=== PATIENT | male | born 1950 | race Caucasian/White ===

== ENCOUNTER 2022-12-23 11:55 | Emergency (ER) | payer MEDICARE, SELFPAY ==
[2022-12-23 11:56] VITALS: BP 141/81; PULSE 82; RESP 16; TEMP 36.5; O2SAT 100; BMI 25.5
--- NOTE | 2022-12-23 12:10 | EX.ED.DYSGE1 ---
HPI <MIKE Hill - Last Filed: 12/23/22 13:52> History of Present Illness Chief Complaint: Cellulitis Narrative Narrative: 72-year-old male states his cat scratched his right index finger about a week ago and since then he has had progressive redness and swelling. For the first few days just the finger was swollen and he took an antibiotic he had on hand at home. When the entire hand became swollen and red he went to urgent care was prescribed Augmentin and has taken x5 doses with no improvement. Denies fever or chills. Denies diabetes or immunocompromise. He is right-hand dominant. [facility] <MIKE Hill - Last Filed: 12/23/22 13:52> [facility] Medical History (Updated 12/23/22 @ 13:52 by MIKE Hill) Hypertension Allergy/AdvReac Type Severity Reaction Status Date / Time No Known Allergies Allergy Verified 12/23/22 12:05 Social History Smoking Status: Never smoker ROS <MIKE Hill - Last Filed: 12/23/22 13:52> ROS ED ROS Narrative Constitutional: Negative for fever, chills, malaise. GI: Negative for nausea, vomiting. Neuro: Negative for motor/sensory dysfunction. Skin: Positive for redness. Musc: Positive for right hand pain, swelling. EXAM <MIKE Hill - Last Filed: 12/23/22 13:52> Physical Exam Narrative Exam Narrative: CONST: Patient sitting in no acute distress. EYES: Normal inspection. NECK: Normal inspection. RESP: No respiratory distress, CTAB. CVS: Regular rate and rhythm, no murmur, no gallop. SKIN: Color normal, no rash, warm, dry, intact. EXTREMITIES: Edematous and erythematous right hand with fusiform swelling of the right index finger and diffuse tenderness. Pinpoint scab over the tip of the index finger where the cat scratch occurred, no fluctuance or drainage. 2+ radial pulse and brisk cap refill. NEURO: Oriented x4. PSYCH: Normal affect. Const Vital Signs: 12/23/22 11:56 12/23/22 12:15 12/23/22 13:23 Temperature 97.7 F L 97.7 F L 98.2 F Temperature Source Temporal Temporal Oral Pulse Rate 82 81 77 Respiratory Rate 16 18 18 Blood Pressure 141/81 H 130/77 H 147/99 H Blood Pressure Mean 101 94 115 Pulse Ox 100 97 96 Oxygen Delivery Method Room Air Room Air Room Air 12/23/22 14:02 12/23/22 14:03 Temperature Temperature Source Pulse Rate 73 74 Respiratory Rate 18 18 Blood Pressure 147/99 H Blood Pressure Mean 115 Pulse Ox 96 96 Oxygen Delivery Method Room Air <Dr. William Ray DO - Last Filed: 12/23/22 14:36> Physical Exam Const Vital Signs: 12/23/22 11:56 12/23/22 12:15 12/23/22 13:23 Temperature 97.7 F L 97.7 F L 98.2 F Temperature Source Temporal Temporal Oral Pulse Rate 82 81 77 Respiratory Rate 16 18 18 Blood Pressure 141/81 H 130/77 H 147/99 H Blood Pressure Mean 101 94 115 Pulse Ox 100 97 96 Oxygen Delivery Method Room Air Room Air Room Air 12/23/22 14:02 12/23/22 14:03 Temperature Temperature Source Pulse Rate 73 74 Respiratory Rate 18 18 Blood Pressure 147/99 H Blood Pressure Mean 115 Pulse Ox 96 96 Oxygen Delivery Method Room Air MDM <MIKE Hill - Last Filed: 12/23/22 13:52> [facility] Narrative Medical decision making narrative: Patient had a cat scratch to his right index finger and developed progressive redness and swelling of the hand over the last week despite taking to oral antibiotics. He appears well and nontoxic and is afebrile with normal vital signs. Right hand is red and swollen with fusiform swelling of the index finger where the cat scratch occurred. Fingers in slight flexion and has pain with extension concerning for flexor tenosynovitis. Differential also includes cellulitis, abscess, osteomyelitis. Labs were ordered and he was given IV vancomycin. He has a normal white count of 7.8, ESR 10, CRP 71.1. BMP unremarkable. X-ray shows no acute osseous abnormalities. I placed an [facility] telemetry hand consult and spoke with the orthopedic hand surgeon, Dr. Turner, who agreed with treatment and recommended transfer to [facility] ED to ED for evaluation. Patient was made NPO. He was excepted by Dr. Starks in the ED. Patient refused EMS transport and will go by private vehicle after finishing IV antibiotics. Lab Data Attestation: I reviewed the patient's lab results. Labs: Laboratory Results - last hr 12/23/22 12:15 WBC 7.8 RBC 5.02 Hgb 15.1 Hct 46.1 MCV 91.8 MCH 30.1 MCHC 32.8 RDW Std Deviation 48.3 H RDW Coeff of Zia 14.2 Plt Count 248 MPV 9.6 Immature Gran % (Auto) 0.300 Neut % (Auto) 76.3 H Lymph % (Auto) 10.9 L Chaves % (Auto) 11.1 H Eos % (Auto) 0.6 Baso % (Auto) 0.8 Absolute Neuts (auto) 5.9 Absolute Lymphs (auto) 0.85 Nucleated RBC % 0 ESR 10 Sodium 134 L Potassium 3.5 Chloride 99 Carbon Dioxide 28.0 Anion Gap 7 BUN 16 Creatinine 0.87 Estim Creat Clear Calc 76.44 Est GFR (MDRD) Af Amer 112 Est GFR (MDRD) Non-Af 92 BUN/Creatinine Ratio 18.4 Glucose 95 Calcium 8.3 L C-React Prot Ext Range 71.10 H Radiography Diagnostic Testing: Clinical Impression(s) from Imaging Studies Hand X-Ray 12/23/22 12:17 IMPRESSION: No fracture or dislocation in the right hand. Soft tissue swelling of the index finger. Status post ORIF of the proximal third phalanx. Electronically Signed: Damián Malhotra MD at 12:54 EDT , ED attending interpretation of left hand shows no fracture or dislocation, no evidence of osteomyelitis. <Dr. William Ray, DO - Last Filed: 12/23/22 14:36> [facility] Lab Data Labs: Laboratory Results - last 24 hr 12/23/22 12:15 WBC 7.8 RBC 5.02 Hgb 15.1 Hct 46.1 MCV 91.8 MCH 30.1 MCHC 32.8 RDW Std Deviation 48.3 H RDW Coeff of Zia 14.2 Plt Count 248 MPV 9.6 Immature Gran % (Auto) 0.300 Neut % (Auto) 76.3 H Lymph % (Auto) 10.9 L Chaves % (Auto) 11.1 H Eos % (Auto) 0.6 Baso % (Auto) 0.8 Absolute Neuts (auto) 5.9 Absolute Lymphs (auto) 0.85 Nucleated RBC % 0 ESR 10 Sodium 134 L Potassium 3.5 Chloride 99 Carbon Dioxide 28.0 Anion Gap 7 BUN 16 Creatinine 0.87 Estim Creat Clear Calc 76.44 Est GFR (MDRD) Af Amer 112 Est GFR (MDRD) Non-Af 92 BUN/Creatinine Ratio 18.4 Glucose 95 Calcium 8.3 L C-React Prot Ext Range 71.10 H Radiography Diagnostic Testing: Clinical Impression(s) from Imaging Studies Hand X-Ray 12/23/22 12:17 IMPRESSION: No fracture or dislocation in the right hand. Soft tissue swelling of the index finger. Status post ORIF of the proximal third phalanx. Electronically Signed: Damián Malhotra MD at 12:54 EDT , Treatment and Re-Evaluation :: ED attending note: I evaluated the patient in conjunction with the INES. I agree with his/her statements and above findings. I have personally performed a face to face assessment of the patient and have reviewed the INES Note. I performed a substantive portion of the visit including all aspects of the following. I personally saw the patient performed chart review, physical exam, reviewed labs, imaging (if obtained), and formulated a treatment and management plan. Brief history: 72-year-old male here with redness to the right hand after cat bite. Pt is right hand dominant. Exam: Nursing triage notes reviewed, Vital signs reviewed Constitutional: please see mdm Extremities: Fusiform, sausagelike swelling of the first digit, fingers held in flexion, pain with passive extension, tenderness over flexor tendons. Neuro: Intact 5/5 movement with ok sign (median), intact finger abduction (ulnar) intact wrist extension (radial n). Intact sensation in the radial, ulnar, and median nerve distributions. Skin: Erythema noted over the first digit of the right hand going into the dorsum of the right hand. MDM/plan: Chief Complaint: Hand infection External records reviewed: No recent advanced imaging of the hand Factors affecting care: Hypertension Social determinants of health: Elderly History obtained from others: Consults: Hand surgery MDM narrative: Patient was hemodynamically stable, afebrile, nontoxic-appearing. Exam concerning for flexor tenosynovitis I considered the following differential diagnosis: [Flexor tenosynovitis, osteomyelitis, cellulitis We will obtain x-ray, labs, give empiric IV antibiotics and consult hand The patient will need transfer for urgent hand consultation Shared decision making: I will have a discussion with the patient and or visitors regarding risk/benefits of further testing or admission. They will be made aware of of the risk/benefits inherent in this decision they will be given the opportunity to voice understanding. Discharge Plan Triage Chief Complaint: Cellulitis ED Midlevel Provider: Shabana Cabrera ED Provider: William Ray Dx/Rx/DC Orders Clinical Impression: Suppurative tenosynovitis of flexor tendon of right hand Primary Care Provider: Care Physician,No Primary Referrals: Care Physician,No Primary [Primary Care Provider] - Disposition Disposition: Acute Care Hospital Discharge Location: [facility]
[2022-12-23 12:15] VITALS: BP 130/77; PULSE 81; RESP 18; TEMP 36.5; O2SAT 97
--- NOTE | 2022-12-23 12:17 | RAD_ITS ---
STUDY: X-RAY - RIGHT HAND REASON FOR EXAM: Male, 72 years old. Pain. TECHNIQUE: 3 view(s) of the hand. COMPARISON: None. FINDINGS: There is no evidence of fracture or dislocation. The patient is status post ORIF of the third proximal phalanx. There are no radiodense foreign bodies. There is soft tissue swelling of the index finger. RAD/Hand Min 3 Views IMPRESSION: No fracture or dislocation in the right hand. Soft tissue swelling of the index finger. Status post ORIF of the proximal third phalanx. Electronically Signed: Damián Malhotra MD at 12:54 EDT ,
[2022-12-23 12:22] LABS: Erythrocyte Sedimentation Rate 10 mm/hr (0-20)
[2022-12-23 12:34] LABS: Anion Gap 7 (5-15); BUN 16 mg/dL (7-18); BUN/Creat Ratio 18.4 RATIO (10-20); Calcium,Total 8.3 mg/dL (8.5-10.1); Chloride 99 mmol/L (98-107); Creatinine, Serum 0.87 mg/dL (0.70-1.30); EST Glomerular Filtration Rate 92 mL/min (>60); Est Glom Filt Rate - Afr Amer 112 mL/min (>60); Estimated Creatinine Clearance 76.44 ml/min; Glucose 95 mg/dL (74-106); Potassium 3.5 mmol/L (3.5-5.1); Sodium Level 134 mmol/L (136-145)
[2022-12-23 12:36] LABS: Absolute Lymphocyte Count 0.85 X10^3/uL (0.83-4.51); Absolute Neutrophil Count 5.9 X10^3/uL (2.0-7.7); Basophil# 0.06 X10^3/uL; Basophil% 0.8 % (0-1); Eosinophil# 0.05 X10^3/uL; Eosinophils% 0.6 % (0-5); Hematocrit 46.1 % (40-54); Hemoglobin 15.1 g/dL (13.0-16.5); Lymphocyte # 0.85 X10^3/ul (0.83-4.51); Lymphocyte % 10.9 % (19-41); Mean Corp Hgb Conc 32.8 g/dL (32-36); Mean Corpuscular Hgb 30.1 pg (27.0-32.0); Mean Corpuscular Volume 91.8 fL (80-94); Mean Platelet Vol. 9.6 fl (6.2-12.0); Monocyte# 0.86 X10^3/uL; Monocyte% 11.1 % (0-10); NRBC Flagged by Analyzer 0 % (0-5); Neutrophil # 5.94 X10^3/uL (2.7-7.7); Neutrophil % 76.3 % (47-70); Platelet Count 248 K/mm3 (150-450); RBC Distribution Width CV 14.2 % (11.6-14.6); RBC Distribution Width SD 48.3 fl (35.1-43.9); Red Blood Count 5.02 M/mm3 (4.6-6.2); White Blood Count 7.8 K/mm3 (4.4-11.0)
[2022-12-23] MEDS: Vancomycin HCl 1,250 MG in 0.9% Normal Saline (250mL Bag) 250 ML 167 MG IV (13:20)
[2022-12-23 13:23] VITALS: BP 147/99; PULSE 77; RESP 18; TEMP 36.8; O2SAT 96
--- NOTE | 2022-12-23 13:32 | NURSING ---
[facility] CALLED, ETA [id number]
--- NOTE | 2022-12-23 13:51 | ED.RN ---
PER PT MY SON CAN DRIVE ME TO [facility]. MIKE REHMAN. AWARE. PT TO FINISH IV VANCOMYCIN THEN SON TO TRANSPORT TO [facility].
[2022-12-23 14:02] VITALS: PULSE 73; RESP 18; O2SAT 96
[2022-12-23 14:03] VITALS: BP 147/99; PULSE 74; RESP 18; O2SAT 96
--- NOTE | 2022-12-23 15:14 | ED.RN ---
THIS RN CALLED REPORT TO [facility] ER AT 1512. REPORT GIVEN TO RICHARD HINKLE.
[2022-12-23 15:19] VITALS: BP 126/67; PULSE 72; RESP 18; O2SAT 98
--- NOTE | 2022-12-23 15:24 | ED.RN ---
PT AMBULATED OUT OF ER AT 1525 WITH SON. THIS RN EDUCATED PT AGAIN THAT HE IS NPO PRIOR TO DEPATURE FROM ER. SON TO DRIVE PT TO [facility].
== END 2022-12-23 15:25 | disposition short-term general hospital (02) ==
PROVIDERS: Physician Assistant; Emergency Provider Emergency Medicine; Visit Provider Emergency Medicine
DX: M65.841 Other synovitis and tenosynovitis, right hand (principal)
CPT/HCPCS: 73130; 80048; 85025; 85652; 86140; 87040; 96365; 96366; 99284; J7050; A4216

== ENCOUNTER 2024-09-06 08:17 | Emergency (ER) | payer MEDICARE, SELFPAY ==
[2024-09-06 08:21] VITALS: BP 135/85; PULSE 65; RESP 16; TEMP 36.6; O2SAT 99; BMI 25.5
--- NOTE | 2024-09-06 08:37 | EKG12_ITS ---
Test Reason : CP Blood Pressure : */* mmHG Vent. Rate : 50 BPM Atrial Rate : 50 BPM P-R Int : 182 ms QRS Dur : 80 ms QT Int : 420 ms P-R-T Axes : 55 9 41 degrees QTcB Int : 382 ms Sinus bradycardia Otherwise normal ECG Confirmed by ALKA COPELAND, MIKAL ([id number]), newspaper managing editor GILMA RINALDI ([id number]) on 09/07/2024 1:36:14 PM Referred By: RICHA Confirmed By: MIKAL RUCKER MD
--- NOTE | 2024-09-06 08:42 | EDS_ITS ---
HPI History of Present Illness Chief Complaint: Chest Pain Narrative Narrative: Chief complaint and HPI: Chest pain. 73-year-old male with past medical history of HTN presents for evaluation of chest pain/left shoulder pain. Onset approximately 2 weeks and intermittent. States is mostly located in his left shoulder/scapula and occasionally radiates to his chest. He describes that as sharp. Denies any trauma or injury. Denies any numbness/tingling. Triage note states increased weakness however he denies this to me. He denies any fever, chills, URI symptoms, shortness of breath, cough, abdominal pain, nausea, vomiting. Ibuprofen and Tylenol improved the pain. Denies any recent travel or surgery. Denies any bilateral lower extremity pain or swelling. Took Tylenol prior to arrival. Non-smoker. Has a family history of MIs. Review of systems: See HPI Medications: As listed on the chart Allergies: As listed on the chart PFSH: Per chart Vital signs: As listed on the chart. Reviewed. Physical exam: Gen: A&O x3, NAD Head: Normocephalic, atraumatic Eyes: No sclera icterus, conjunctiva clear ENT: Moist mucous membranes Neck: Trachea midline, No JVD CV: RRR, no murmurs, no peripheral edema, chest wall nontender to palpation Resp: Lungs CTA BL, no w/r/c GI: Abd soft, non-distended, non-tender, no r/r/g Musc: Full ROM, no deformity, tender to palpation in the trapezius distribution of the left shoulder-recreates the pain, no midline spinal tenderness, no bony step-offs, radial pulses +2 bilaterally Skin: Warm, dry Neuro: Alert, oriented, grossly intact, sensation intact Psych: Cooperative, appropriate mood and affect [facility] Medical History (Updated 09/06/24 @ 10:[address] Byron Roca, DO) Hypertension Home Medications ?Medication ?Instructions ?Recorded ?Last Taken ?Type atenolol 50 mg tablet 50 mg PO DAILY 09/06/24 Unkn own History lisinopril 20 1 tab PO 09/06/24 Unknown Hi story mg-hydrochlorothiazide 12.5 mg tablet Allergy/AdvReac Type Severity Reaction Status Date / Time No Known Allergies Allergy Verified 12/23/22 12:05 Social History Smoking Status: Never smoker EXAM Physical Exam Const Vital Signs: 09/06/24 08:21 09/06/24 09:27 09/06/24 10:09 Temperature 97.8 F Temperature Source Temporal Pulse Rate 65 49 L 56 L Respiratory Rate 16 20 H 23 H Blood Pressure 135/85 H 103/78 106/62 Blood Pressure Mean 101 86 76 Pulse Ox 99 96 95 Oxygen Delivery Method Room Air Room Air 09/06/24 11:00 Temperature Temperature Source Pulse Rate 58 L Respiratory Rate 17 Blood Pressure 119/70 Blood Pressure Mean 86 Pulse Ox 98 Oxygen Delivery Method Room Air MDM MDM MDM Narrative Medical decision making narrative: 73-year-old male with past medical history of HTN presents for evaluation of chest pain/left shoulder pain. Onset approximately 2 weeks and intermittent. States is mostly located in his left shoulder/scapula and occasionally radiates to his chest. He describes that as sharp. Differential diagnosis includes but is not limited to myofascial spasm, ACS, pneumonia, electrolyte abnormality, PE. Aspirin ordered. Cardiac workup ordered. EKG and chest x-ray reviewed see below. CBC without leukocytosis or anemia. Platelets unremarkable. D-dimer negative for age adjustment. BMP shows renal insufficiency with a creatinine of 1.24. Previous labs are from 2023. At time creatinine was normal. He will need to have this further worked up outpatient. BNP unremarkable. Troponin negative x 2. Patient's heart score is a 3 which places him at a low score. This is secondary to age as well as risk factors. Again, I have low suspicion for ACS given that majority of the patient's pain is in the trapezius muscle which is tender to palpation and recreates his pain. He also describes his pain as sharp. Has been intermittent for 2 weeks. Not exertional. Improves with Tylenol. Suspect more musculoskeletal etiology. Follow-up with PCP. Return precautions explained. He confirmed understanding of plan. EKG: Interpreted by me/EM physician: EKG shows sinus bradycardia without any acute ischemic changes. Heart rate 50. Diagnostic: Interpreted by me/EM physician: Chest x-ray without pneumonia, effusion, cardiomegaly, pneumothorax Impression: 1. Chest pain, suspect musculoskeletal in nature 2. Renal insufficiency Lab Data Labs: Laboratory Results - last 24 hr 09/06/24 09/06/24 08:25 10:25 WBC 7.7 RBC 4.98 Hgb 15.5 Hct 45.1 MCV 90.6 MCH 31.1 MCHC 34.4 RDW Std Deviation 44.0 H RDW Coeff of Zia 13.2 Plt Count 288 MPV 10.0 Immature Gran % (Auto) 0.300 Neut % (Auto) 66.0 Lymph % (Auto) 21.7 Edmunds % (Auto) 8.2 Eos % (Auto) 3.0 Baso % (Auto) 0.8 Absolute Neuts (auto) 5.1 Absolute Lymphs (auto) 1.67 Nucleated RBC % 0 D-Dimer Quant (PE/DVT) 0.57 H* Sodium 136 Potassium 4.1 Chloride 102 Carbon Dioxide 19.9 L Anion Gap 14 BUN 28 H Creatinine 1.24 H Estim Creat Clear Calc 52.86 Est GFR (MDRD) Non-Af 62 BUN/Creatinine Ratio 22.9 H Glucose 104 H Calcium 8.9 Troponin T High Sens 15 Troponin T Hi Sens 2 Hr 11 NT pro BNP II 283 Radiography Diagnostic Testing: Clinical Impression(s) from Imaging Studies Chest X-Ray 09/06/24 08:55 IMPRESSION: Mild thoracic spine degenerative changes are noted. Bilateral acromioclavicular joint degenerative changes are seen. No acute osseous process is noted. Lungs appear clear throughout. No pleural effusion or pneumothorax is seen. The cardiomediastinal silhouette is within the normal range for age. No evidence of acute cardiopulmonary disease. Reading Location: [place] [address] Discharge Plan Triage Chief Complaint: Chest Pain ED Provider: Byron Roca Dx/Rx/DC Orders Clinical Impression: Chest pain, Renal insufficiency Instructions: ED Chest Pain, Noncardiac Prescriptions: No Action lisinopril-hydrochlorothiazide 20-12.5 mg tablet 1 tab PO atenolol 50 mg tablet 50 mg PO DAILY Primary Care Provider: Nida Kent Referrals: Smith Marshall MD [[facility]] - 3-5 Days Activity Restrictions/Additional Instructions: Unclear etiology for your pain at this time although suspect muscle spasm. Follow-up with primary care physician. Return back to the ED if symptoms change or worsen. Your kidney levels were mildly elevated here in the emergency department, follow-up with your physician. Tylenol and ibuprofen as needed for pain. Recommend IcyHot and heating pad. Print Language: Irish Disposition Disposition: Home, Self Care
[2024-09-06] MEDS: Aspirin 81 MG TAB.CHEW 324 MG PO (08:51)
[2024-09-06 08:55] LABS: Absolute Lymphocyte Count 1.67 X10^3/uL (0.83-4.51); Absolute Neutrophil Count 5.1 X10^3/uL (2.0-7.7); Basophil# 0.06 X10^3/uL; Basophil% 0.8 % (0-1); Eosinophil# 0.23 X10^3/uL; Hematocrit 45.1 % (40-54); Hemoglobin 15.5 g/dL (13.0-16.5); Lymphocyte # 1.67 X10^3/ul (0.83-4.51); Lymphocyte % 21.7 % (19-41); Mean Corp Hgb Conc 34.4 g/dL (32-36); Mean Corpuscular Hgb 31.1 pg (27.0-32.0); Mean Corpuscular Volume 90.6 fL (80-94); Monocyte# 0.63 X10^3/uL; Monocyte% 8.2 % (0-10); NRBC Flagged by Analyzer 0 % (0-5); Neutrophil # 5.07 X10^3/uL (2.7-7.7); Platelet Count 288 K/mm3 (150-450); RBC Distribution Width CV 13.2 % (11.6-14.6); Red Blood Count 4.98 M/mm3 (4.6-6.2); White Blood Count 7.7 K/mm3 (4.4-11.0)
--- NOTE | 2024-09-06 08:55 | RAD_ITS ---
PROCEDURE: CHEST PA AND LATERAL 09/06/2024 REASON FOR EXAM: CHEST PAIN TECHNIQUE: CHEST PA AND LATERAL COMPARISON: None. RAD/Chest PA and Lateral IMPRESSION: Mild thoracic spine degenerative changes are noted. Bilateral acromioclavicula r joint degenerative changes are seen. No acute osseous process is noted. Lungs appear clear throughout. No pleural effusion or pneumothorax is seen. The cardiomediastinal silhouette is within the normal range for age. No evidence of acute cardiopulmonary disease. Reading Location: [place] [address]
[2024-09-06 09:21] LABS: D-Dimer Quantitative (DVT/PE) 0.57 FEU/ug/m (0.27-0.49)
[2024-09-06 09:27] VITALS: BP 103/78; PULSE 49; RESP 20; O2SAT 96
[2024-09-06 09:58] LABS: Anion Gap 14 (5-15); BUN 28 mg/dL (4-19); BUN/Creat Ratio 22.9 RATIO (10-20); Calcium,Total 8.9 mg/dL (7.6-11.0); Carbon Dioxide 19.9 mmol/L (21.0-32.0); Chloride 102 mmol/L (98-108); Creatinine, Serum 1.24 mg/dL (0.70-1.20); EST Glomerular Filtration Rate 62 (>60); Estimated Creatinine Clearance 52.86 ml/min (50-250); Glucose 104 mg/dL (70-99); Potassium 4.1 mmol/L (3.3-5.1); Pro- Brain NATRIURETIC PEPTIDE 283 pg/mL (<=900); Sodium Level 136 mmol/L (133-145); Troponin T High Sensitivity 15 ng/L (<=22)
[2024-09-06 10:09] VITALS: BP 106/62; PULSE 56; RESP 23; O2SAT 95
[2024-09-06 11:00] VITALS: BP 119/70; PULSE 58; RESP 17; O2SAT 98
[2024-09-06 11:08] LABS: Troponin T High Sens 2 HR 11 ng/L (<=22)
[2024-09-06 11:35] VITALS: BP 117/74; PULSE 59; RESP 18; TEMP 36.6; O2SAT 98
== END 2024-09-06 11:37 | disposition home or self-care (01) ==
PROVIDERS: Emergency Provider Surgery; PCP Nurse Practitioner Family; Visit Provider Surgery
DX: R07.89 Other chest pain (principal); M25.512 Pain in left shoulder; N28.9 Disorder of kidney and ureter, unspecified; I10 Essential (primary) hypertension; Z79.899 Other long term (current) drug therapy
CPT/HCPCS: 71046; 80048; 83880; 84484; 85025; 85379; 93005; 99284; A4216